=== PATIENT | male | born 1985 | race Two or more races ===

== ENCOUNTER 2022-04-22 13:25 | Emergency (ER) | payer BC ==
[~2022-04-22] VITALS: Ht 180.3 cm; Wt 79.4 kg
[2022-04-22] MEDS ORDERED: ZYRTEC10 MG PO (13:36)
[2022-04-22] MEDS ORDERED: PREVACID15 M1 PO (13:36)
== END 2022-04-22 16:34 | disposition home or self-care (01) ==
LOC: ER 13:25
DX: R07.0 Pain in throat (principal); S19.9XXA Unspecified injury of neck, initial encounter